=== PATIENT | female | born 1960 | race Caucasian/White ===

== ENCOUNTER → 2023-02-05 | Outpatient (REF) | payer OTHER | LOC: M PLAIMG 12:53 | PROVIDERS: ATTEND Internal Medicine | DX: M41.82 Other forms of scoliosis, cervical region (principal); M41.86 Other forms of scoliosis, lumbar region; M41.87 Other forms of scoliosis, lumbosacral region; Z98.1 Arthrodesis status; R52 Pain, unspecified ==